=== PATIENT | male | born 1990 | race Hispanic/Latino ===

== ENCOUNTER 2018-05-02 00:41 | Emergency (ER) | payer BC ==
[2018-05-02 00:57] VITALS: RESP 18
--- NOTE | 2018-05-02 02:00 | C.PDOC ---
History Of Present Illness 27 year old male presents to the ED for evaluation after he sustained a laceration to his right index finger prior to arrival. Patient states he accidentally injured himself while cooking at home. He denies changes in sensation or active bleeding at this time. Time Seen by Provider: 05/02/18 01:24 Chief Complaint (Nursing): Abnormal Skin Integrity History Per: Patient History/Exam Limitations: no limitations Onset/Duration Of Symptoms: Hrs Current Symptoms Are (Timing): Still Present Location Of Injury: Right: Hand (index finger ) Quality Of Symptoms: Painful Additional History Per: Patient Past Medical History Reviewed: Historical Data, Nursing Documentation, Vital Signs Vital Signs: Last Vital Signs Temp 98.5 F 05/02/18 02:20 Pulse 86 05/02/18 02:20 Resp 18 05/02/18 02:20 BP 145/85 05/02/18 02:20 Pulse Ox 99 05/02/18 02:48 - Medical History PMH: No Chronic Diseases Surgical History: No Surg Hx Family History: States: Unknown Family Hx - Social History Hx Alcohol Use: No Hx Substance Use: No - Immunization History Hx Tetanus Toxoid Vaccination: Yes Hx Influenza Vaccination: No Hx Pneumococcal Vaccination: No Review Of Systems Skin: Positive for: Other (laceration to right index finger) Physical Exam - Physical Exam Appears: Non-toxic, No Acute Distress Skin: Normal Color, Warm, Dry, Other (angular laceration to tip of right index finger. no active bleeding ) Extremity: Normal ROM, Capillary Refill (less than 2 seconds ), No Deformity, No Swelling Pulses: Right Radial: Normal Neurological/Psych: Oriented x3, Normal Speech, Normal Cognition, Normal Motor, Normal Sensation ED Course And Treatment O2 Sat by Pulse Oximetry: 99 (on RA) Pulse Ox Interpretation: Normal Progress Note: Linear, angular laceration to tip of right index finger. Wound soaked in betadine, irrigated with NS and explored. No FB seen. No tendon injury. Area sealed with Dermabond skin adhesive and steri strips applied. Patient tolerated well with minimal bleeding. On re-exam, patient is resting comfortably, showing no signs of distres and is stable for discharge. Patient is advised to follow up with his PMD within 1-2 days for further evaluation and/ or return to the ED if symptoms persist or worsen. Laceration - Laceration Repair right index finger Wound Length (In cm): 1.5 Description Of Wound: Irregular Wound Cleansed With: Betadine Wound Examination: Irrigated With Saline, No FB With Wound Exploration, No Tendon Injury With Wound Exploration Wound Closure: Steri Strips, Skin Glue Wound Complexity: Simple Disposition - Disposition Referrals: Non [facility] Provider, [Primary Care Provider] - Disposition: HOME/ ROUTINE Disposition Time: 01:59 Condition: IMPROVED Additional Instructions: Follow up with your PMD within 1-2 days. Return to ED if feel worse. Instructions: Laceration Repair With Glue (DC) Forms: [employer] (Greenlandic) - Clinical Impression Clinical Impression: Finger laceration - PA / / Resident Statement MD/DO has reviewed & agrees with the documentation as recorded. - Scribe Statement The provider has reviewed the documentation as recorded by the Scribe (Viviane Tierney) All medical record entries made by the Scribe were at my direction and personally dictated by me. I have reviewed the chart and agree that the record accurately reflects my personal performance of the history, physical exam, medical decision making, and the department course for this patient. I have also personally directed, reviewed, and agree with the discharge instructions and disposition.
[2018-05-02 02:20] VITALS: BP 145/85; PULSE 86; TEMP 98.5
[2018-05-02 02:40] VITALS: O2SAT 99
== END 2018-05-02 02:20 | disposition home or self-care (01) ==
LOC: C.ER 00:41 → SUPCPDRO 00:41 → C.ER 02:20
DX: S61.210A Laceration without foreign body of right index finger without damage to nail, initial encounter (principal); Y93.G3 Activity, cooking and baking; Y92.009 Unspecified place in unspecified non-institutional (private) residence as the place of occurrence of the external cause